=== PATIENT | female | born 1955 | race Caucasian/White ===

== ENCOUNTER 2021-01-20 00:25 | Inpatient (IN) | payer MEDICARE ==
[~2021-01-20] VITALS: Ht 167.6 cm; Wt 98.9 kg
[2021-01-20] VITALS (31 sets, daily range): BP systolic 81–128; BP diastolic 43–84
[2021-01-20] MEDS ORDERED: TYLENOL325 MG PO (00:53)
[2021-01-20] MEDS ORDERED: ADVAIR HFA 115-12 G1 INH (00:53)
[2021-01-20] MEDS ORDERED: TESSALON PERLE100 MG PO (00:54)
[2021-01-20] MEDS ORDERED: ASA81BEC PO (00:54)
[2021-01-20] MEDS ORDERED: FUROSEMIDE 40 M40 MG PO (00:56)
[2021-01-20] MEDS ORDERED: FERROUS FUMARAT89 MG PO (00:56)
[2021-01-20] MEDS ORDERED: VITAMIN D310 MC2 PO (00:56)
[2021-01-20] MEDS ORDERED: GUAIFENESIN DM1 EACH PO (00:58)
[2021-01-20] MEDS ORDERED: IPRAT-ALBUT 0.5-3 ML INH (00:59)
[2021-01-20] MEDS ORDERED: ZOCOR 20 MG TAB20 M1 PO (01:01)
[2021-01-20] MEDS ORDERED: PROMETH-CODEIN 65 ML PO (01:01)
[2021-01-20 01:03] LABS: ABSOLUTE LYMPHOCYTES 0.3 thou/uL (0.8-5.3); ABSOLUTE MONOCYTES 0.5 thou/uL (0.0-1.2); ABSOLUTE NEUTROPHILS 3.5 thou/uL (1.6-8.1); BASOPHILS 0.3 %; EOSINOPHILS 0.9 %; HEMATOCRIT 38.6 % (37.0-47.0); HEMOGLOBIN 11.2 gm/dL (12.0-15.0); LYMPHOCYTES 7.1 %; MCH 28.2 pg (26.0-34.0); MCHC 28.9 g/dL (28.0-37.0); MCV 97.6 fL (80.0-100.0); MONOCYTES 10.6 %; MPV 7.3 fl. (7.2-11.1); NUCLEATED RBCS 1 /100WBC; PLATELET COUNT* 154 thou/uL (150-400); POLYS 81.1 %; RBC 3.96 mil/uL (4.20-5.00); RDW-CV 25.8 % (10.5-14.5); WBC 4.3 thou/uL (4.0-11.0)
[2021-01-20 01:09] LABS: CALCIUM 8.7 mg/dL (8.5-10.1); CREATININE 2.9 mg/dL (0.6-1.3); POTASSIUM 5.2 mmol/L (3.5-5.1)
[2021-01-20 01:13] LABS: ALBUMIN 3.2 g/dL (3.4-5.0); MAGNESIUM 2.8 mg/dL (1.8-2.4); TOTAL BILIRUBIN 0.6 mg/dL (<0.1-1.0)
[2021-01-20 01:47] LABS: BE 5.9 mmol/L (-2 to +3); PO2 109.9 mmHg (75.0-100.0)
[2021-01-20 01:56] LABS: URINE BILIRUBIN NEGATIVE (Negative); URINE BLOOD 3+ (Negative); URINE CLARITY CLEAR; URINE COLOR YELLOW; URINE GLUCOSE-RANDOM NEGATIVE (Negative); URINE KETONES NEGATIVE (Negative); URINE NITRITE-REFLEX NEGATIVE (Negative); URINE PROTEIN 2+ (Negative); URINE SPECIFIC GRAVITY 1.025 (1.005-1.030); URINE UROBILINOGEN 0.2 E.U./dl (0.2-1.0)
[2021-01-20 01:56] LABS: pH 7.225 (7.340-7.450)
[2021-01-20 01:57] LABS: URINE LEUKOCYTES-REFLEX 2+ (Negative)
[2021-01-20 01:57] LABS: PCO2 89.7 mmHg (35.0-45.0)
--- NOTE | 2021-01-20 01:58 | NUR ---
SPOKE TO PATIENTS BROTHER, DAISHA, MEDICAL DPOA. CLARIFIED THAT PATIENT IS A DNR. THEY DO WANT PATIENT TO BE INTUBATED IF IT IS NEEDED PERMISSION GIVEN FOR A CENTRAL LINE WELL WISHES WITNESSED BY ME AND COLIN SHEEHAN
[2021-01-20 02:30] LABS: APTT 27.1 Seconds (25.0-31.3); INR 1.1; PROTIME 11.5 Seconds (9.20-11.50)
[2021-01-20 02:32] LABS: HYALINE CASTS >10 Many /LPF (None Seen); SQUAMOUS 4-10 Moderate /LPF (0-3)
[2021-01-20 02:34] LABS: URINE RBC >20 Many /HPF (0-2)
[2021-01-20 02:35] LABS: CRYSTALS None Seen /LPF (None Seen)
[2021-01-20 04:44] LABS: BE 5.7 mmol/L (-2 to +3)
[2021-01-20 04:47] LABS: pH 7.252 (7.340-7.450)
[2021-01-20 04:48] LABS: PO2 129.4 mmHg (75.0-100.0)
[2021-01-20 05:36] LABS: PLATELET ESTIMATE ADEQUATE
[2021-01-20 05:39] LABS: ANISOCYTOSIS 1+; HYPOCHROMASIA 1+; MACROCYTES 1+; OVALOCYTES Occasional; POIKILOCYTOSIS 1+
--- NOTE | 2021-01-20 06:47 | NUR ---
RECIEVED PT FROM ER AT 0445H, ON BIPAP AT 50%. ORIENTED TO SELF ONLY WITH MENTAL DISORDER. SEEN PT AFIB, CARDIO INFORMED WITH ORDERS CARRIED OUT. PULMO INFORMED PT'S ABG RESULT WITH ORDERS CARRIED OUT. CONTINUE MONITORING AND TOWARDS GOALS. BIPAP AT 35%
[2021-01-20 07:50] LABS: WBC 3.2 thou/uL (4.0-11.0)
[2021-01-20 07:52] LABS: NUCLEATED RBCS 0 /100WBC
[2021-01-20 07:56] LABS: HEMATOCRIT 35.4 % (37.0-47.0); HEMOGLOBIN 10.5 gm/dL (12.0-15.0); MCH 28.8 pg (26.0-34.0); MCHC 29.6 g/dL (28.0-37.0); MCV 97.4 fL (80.0-100.0); MPV 7.3 fl. (7.2-11.1); PLATELET COUNT* 122 thou/uL (150-400); RBC 3.63 mil/uL (4.20-5.00); RDW-CV 25.4 % (10.5-14.5)
[2021-01-20 08:02] LABS: ALBUMIN 2.6 g/dL (3.4-5.0); CALCIUM 8.6 mg/dL (8.5-10.1); CREATININE 2.6 mg/dL (0.6-1.3); POTASSIUM 4.9 mmol/L (3.5-5.1); TOTAL BILIRUBIN 0.5 mg/dL (<0.1-1.0); TOTAL PROTEIN 6.1 g/dL (6.4-8.2)
[2021-01-20 08:10] LABS: BE 4.7 mmol/L (-2 to +3)
[2021-01-20 08:13] LABS: PCO2 70.9 mmHg (35.0-45.0); PO2 58.5 mmHg (75.0-100.0); pH 7.289 (7.340-7.450)
[2021-01-20 08:42] LABS: ABSOLUTE LYMPHOCYTES 0.1 thou/uL (0.8-5.3); ABSOLUTE MONOCYTES 0.3 thou/uL (0.0-1.2); ABSOLUTE NEUTROPHILS 2.8 thou/uL (1.6-8.1); ANISOCYTOSIS 1+; HYPOCHROMASIA 2+; OVALOCYTES 1+; PLATELET ESTIMATE DECREASED; POIKILOCYTOSIS 1+; POLYCHROMASIA Occasional
--- NOTE | 2021-01-20 11:05 | EKG ---
[place] [address] ELECTROCARDIOGRAM REPORT Name: ZOFIA YAO Room: [address] ADM IN M.R.#: [id number] Admission: 01/20/21 Attend Phys: Marshal Noble Discharge: Date of : 57 Date of Service: 01/20/21 003 Report #: [id number] THIS REPORT FOR: //name// [facility] ED Test Date: 2021-01-20 Test Time: 00:31:06 Pat Name: ZOFIA AYO Department: Room: [address] Gender: F Coding Spec: [facility] : 1955 Requested By: Mary Wu Order Number: [id number] Carolyne MD: Adonay Roblero Measurements Intervals [place] Rate: 137 P: MA: QRS: -47 QRSD: 83 T: 101 QT: 307 QTc: 464 Interpretive Statements Atrial fibrillation Left anterior fascicular block Possible lateral infarct, age indeterminate No previous ECG available for comparison Electronically Signed On 01-20-2021 11:04:50 APPLICATION MANAGER by Adonay Roblero [email or web address] <ELECTRONICALLY SIGNED> By: Adonay Roblero MD, FACC 01/20/21 1104 0031 0031 Adonay Roblero MD, FAC /EPI
--- NOTE | 2021-01-20 13:57 | 2DMMODE ---
[place] [address] 2 D/M-MODE ECHOCARDIOGRAM Name: ZOFIA YAO Room: [address] IN .R.#: [id number] Admission: 01/20/21 Attend Phys: Marshal Noble Discharge: Date of : 57 Date of Service: 01/20/21 1357 Report #: [id number] THIS REPORT FOR: cc: Jona Munoz MD, James MD Liston, Michael J. MD [facility] ~ APPROVED REPORT Study performed: 01/20/2021 09:27:47 EXAM: Comprehensive 2D, Doppler, and color-flow Echocardiogram Patient Location: In-Patient Room #: 002 Status: routine BSA: 2.05 HR: 84 bpm BP: 108/67 mmHg Rhythm: Atrial Fibrillation Other Information Study Quality: Good Indications Hypotension Sepsis Dyspnea 2D Dimensions IVSd: 14.73 (7-11mm) LVOT Diam: 20.66 (18-24mm) LVDd: 52.01 mm PWd: 12.83 (7-11mm) Ascending Ao: 36.60 (22-36mm) LVDs: 36.37 (25-40mm) Aortic Root: 34.90 mm Volumes Left Atrial Volume (Systole) LA ESV Index: 86.30 mL/m2 Aortic Valve AoV Peak Antonino.: 2.69 m/s AO Peak Gr.: 28.85 mmHg LVOT Max P.10 mmHg AO Mean Gr.: 17.38 mmHg LVOT Mean P.57 mmHg LVOT Max V: 0.88 m/s AO V2 VTI: 45.26 cm LVOT Mean V: 0.58 m/[place] [address] 2 D/M-MODE ECHOCARDIOGRAM Name: ZOFIA YAO Room: [address] IN ..#: [id number] Admission: 01/20/21 Attend Phys: Marshal Noble Discharge: Date of : 57 Date of Service: 01/20/21 1357 Report #: [id number] SUSAN (VTI): 1.19 cm2 LVOT V1 VTI: 16.06 cm AI [place]: 2.84 m/s2 AI PHT: 490.09 ms Mitral Valve MV Mean Gr.: 8.52 mmHg TDI Lateral E' Antonino.: 0.08 m/s Pulmonary Valve PV Peak Antonino.: 0.87 m/s PV Peak Gr.: 3.01 mmHg Tricuspid Valve RAP Estimate: 15.00 mmHg TR Peak Gr.: 66.26 mmHg RVSP: 81.00 mmHg PA Pressure: 81.00 mmHg Left Ventricle The left ventricle is normal size. There is normal LV segmental wall motion. Moderate concentric left ventricular hypertrophy. Left ventricular systolic function is normal. LVEF is 50-55%. This study is not technically sufficient to allow evaluation of the LV diastolic function due to atrial fibrillation. Right Ventricle Right ventricle is mildly dilated. The right ventricle is moderately hypertrophied. The right ventricular systolic function is normal. Atria Left atrium is severely dilated. Right atrium is moderately dilated. Aortic Valve Moderate to severe aortic valve sclerosis. Moderate aortic regurgitation. Moderate to severe aortic stenosis. Mitral Valve Severe mitral annular calcification. Mild mitral regurgitation. No evidence of mitral valve stenosis. Tricuspid Valve The tricuspid valve is normal in structure. Moderate to severe tricuspid regurgitation. Severe pulmonary hypertension. The RVSP is 90 [place] [address] 2 D/M-MODE ECHOCARDIOGRAM Name: ZOFIA YAO Room: [address] IN [facility].#: [id number] Admission: 01/20/21 Attend Phys: Marshal Noble Discharge: Date of : 57 Date of Service: 01/20/21 1357 Report #: [id number] Pulmonic Valve The pulmonary valve is normal in structure. There is no pulmonic valvular regurgitation. Great Vessels The aortic root is normal in size. IVC is dilated and collapses <50% with inspiration. Pericardium There is no pericardial effusion. <Conclusion> The left ventricle is normal size. Moderate concentric left ventricular hypertrophy. Left ventricular systolic function is normal. LVEF is 50-55%. Right ventricle is mildly dilated. The right ventricle is moderately hypertrophied. The right ventricular systolic function is normal. Left atrium is severely dilated. Right atrium is moderately dilated. Moderate to severe aortic valve sclerosis. Moderate aortic regurgitation. Moderate to severe aortic stenosis. Severe mitral annular calcification. Mild mitral regurgitation. Moderate to severe tricuspid regurgitation. Severe pulmonary hypertension. The RVSP is 90 mmHg. IVC is dilated and collapses <50% with inspiration. <ELECTRONICALLY SIGNED> By: Adonay Roblero MD, FACC 01/20/21 1357 1357 1357 Adonay Roblero MD, FACC /INF
--- NOTE | 2021-01-20 14:08 | NUR ---
ICU rounds: Rapid negative, pcr pending. Alert to self only. Central line to be placed. On bipap. Pt is a LTC resident at [facility] and can return at [place], per Emilee, izabel. CM left for Pt's brother, await call back
--- NOTE | 2021-01-20 15:40 | CON ---
[address] [address] CONSULTATION Name: ZOFIA YAO Room: [address] ADM IN M.R.#: [id number] Admission: 01/20/21 Attend Phys: Awilda Keene Discharge: Date of : 57 Report #: [id number] THIS REPORT FOR: cc: Jona Munoz MD, James MD ~ Carlos Magaña MD DATE OF SERVICE: 01/20/2021 REQUESTING PHYSICIAN: Dr. Noble and Dr. Hernandez INDICATION FOR CONSULTATION: Acute hypoxemic/hypercarbic respiratory failure. HISTORY OF PRESENT ILLNESS: A 65-year-old female, she is a resident of a long-term care facility. The patient is fully awake; however, oriented only to person and therefore is unable to provide a detailed history. I do not have previous records available. The patient does have a previous history of smoking. The patient has in the past been on medications consistent with a diagnosis of COPD. The patient says that she has used oxygen in the past; however, she does not state that she has used CPAP or BiPAP; however, as above the history obtained from the patient is not reliable. There is mention of renal failure on the records, however, the patient is not able to recall history of kidney failure. The patient is now admitted here with acute worsening of shortness of breath. She currently is on a BiPAP. We, however, had a relatively high BiPAP settings of 20/5 and we are still getting low tidal volume, sometimes in the 200s, although, the patient has not been tachypneic. Respiratory rate has been in the high teens. She is in renal failure. Her creatinine is 2.9 last night and 2.6 this morning. I do not have a previous creatinine available for comparison. The patient in fact did have atrial fibrillation as well with heart rates up to 130 overnight. She received 1 dose of ____ just being started on amiodarone infusion. The patient has limited peripheral IV access. She is currently maintaining blood pressure towards the lower end of normal range. Oxygenation has not been an issue. She is on 35% FiO2 and is saturating well. She does not have swelling of lower extremities. The patient is unable to provide a further history or review of systems. PAST MEDICAL HISTORY: COPD, on long-term oxygen, heart failure, hyperlipidemia, there is mention of anticoagulant therapy on her records; however, I do not see an anticoagulant on her reported medication list prior to admission, pulmonary hypertension, according to preliminary report of the echo just performed she has significant aortic stenosis as well as a right heart pressure elevation, intellectual disability, insomnia, hypertension, possible history [place] [address] CONSULTATION Name: ZOFIA YAO Room: [address] IN M.R.#: [id number] Admission: 01/20/21 Attend Phys: Awilda Keene Discharge: Date of : 57 Report #: [id number] SOCIAL HISTORY: The patient says she used to smoke in the past and has now discontinued. No known history of heavy alcohol use or illegal drug use. She is a resident of a long-term care facility. CURRENT MEDICATIONS: List in [facility] reviewed. HOME MEDICATIONS: List in [facility] is reviewed. There is mention of anticoagulant therapy; however, I do not find an anticoagulant on this list. The patient is noted to be on Advair as well as DuoNeb long-term as well as on oxygen. FAMILY HISTORY: No pertinent family history known at this time. ALLERGIES: No known drug allergies. PHYSICAL EXAMINATION: GENERAL: She is fully awake; however, is not able to provide a detailed history. VITAL SIGNS: She earlier was tachycardic with heart rates up to 130. Heart rate right now is 85-90. Blood pressure 116/74. She is not on pressors. We just switched over to a BiPAP of 22/4, which are rather unusual settings with 35-40% FiO2. She is in fact maintaining O2 saturation in the mid 90s. Her respiratory rate is in the high teens. She is fully awake. She is afebrile with a temperature of 36.2. HEENT: Head is normocephalic and atraumatic. Pupils are equal and reactive. There is no throat erythema. She has a narrow airway. Body mass index is 34. NECK: Does not show raised JVP, asymmetry, mass or lymph nodes. CHEST: Symmetrical expansion on inspection and palpation. On auscultation, breath sounds are bilaterally equal, but decreased. I do not hear any added sounds. HEART: Regular. There is a soft systolic murmur. ABDOMEN: Soft and nontender. EXTREMITIES: Lower extremities show no edema, no calf tenderness. SKIN: Dry and intact. NEUROLOGICAL: She does move all extremities bilaterally equally and spontaneously with no focal deficit identified. IMAGING STUDIES: Reviewed her chest x-rays. There is a significant cardiomegaly consistent with chronic heart failure and left ventricular hypertrophy. The patchy bilateral infiltrates, possibly a small lobar infiltrate at the left lung base. I do not see florid pulmonary vascular congestion. She has a prominent aorta. There is a chest x-ray performed at 3:00 a.m., which shows mild increase in pulmonary vascular congestion despite [facility] [address] [place] [address] CONSULTATION Name: ZOFIA YAO Room: [address] ADM IN M.R.#: [id number] Admission: 01/20/21 Attend Phys: Awilda Keene Discharge: Date of : 57 Report #: [id number] the fact that the patient got fluid after this. This in fact looks better on the x-ray performed at 04:25. X-ray performed around midnight in fact does not show pulmonary vascular congestion. LABORATORY DATA: Lab work in [facility] reviewed. She is in renal failure. COVID-19 PCR is pending. MRSA PCR is pending. Screen is negative. Arterial blood gases consistent with acute on chronic hypoxemic and hypercarbic respiratory failure in [facility] reviewed. ASSESSMENT AND PLAN: 1. Degyh-ws-hdfvazn hypoxemic and hypercarbic respiratory failure. She has very significant hypercarbia, pH was also low part of this is secondary to metabolic acidosis and part respiratory the patient in fact looks significantly better, then what would be apparent based on arterial blood gases alone as below considering that the patient has acute renal failure. I would in fact cautiously go ahead and give her IV fluids. In case, her respiratory status worsens as a result would endotracheally intubate her and support her with the ventilator. The patient does need a central line and I understand that this is already planned. I did adjust the BiPAP settings. It is rather unusual to require this much I:E ratio to get this tidal volume. The etiology of this is not fully clear at this time. We will do an ABG again at 3:00 p.m. and see where we stand. Meanwhile, she remains on BiPAP. 2. Acute exacerbation of chronic obstructive pulmonary disease, Solu-Medrol as well as nebulized bronchodilators. Considering significant AFib, I ordered Xopenex. She is also on Brovana and Atrovent is added. 3. Pulmonary infiltrates. COVID-19 PCR is pending. Overall, my suspicion is not high. She does have a left lower lobe infiltrate as well. She is on Zosyn and doxycycline at this time, we will follow response. 4. Acute renal failure and congestive heart failure. I do not have the patient's previous creatinine available. Renal ultrasound is pending. Considering significant renal failure, I would cautiously go ahead and give her some IV fluids and I reviewed this with Dr. Hernandez as well. It will be possible that this leads to worsening in her respiratory status. If the same, does occur, then I would go ahead and endotracheally intubate her and support her with the ventilator, but allowing adequate renal perfusion at this time also appears to be appropriate. Meanwhile, we are requesting records and we will see what her baseline creatinine is. She has significant cardiomegaly on the chest x-ray. Pulmonary vascular congestion on the last chest x-ray is minimal. Most of the heart failure in fact appears to be chronic and not acute at first glance. 5. Atrial fibrillation with rapid ventricular response with an elevated right heart pressure. We will await final echo report. I would do stat venous Dopplers. D-dimer is also elevated. She is planned for a central line placement. Potentially could be started on IV heparin after the line is placed. [address] [place] [address] CONSULTATION Name: ZOFIA YAO Room: M.002-P ADM IN M.R.#: [id number] Admission: 01/20/21 Attend Phys: Awilda Keene Discharge: Date of : 57 Report #: [id number] A perfusion scan is likely to not give us a definite answer and there will be risk in transport, therefore would hold off on a perfusion scan. She has obvious contraindications to performing a CTA chest. 6. Deep vein thrombosis prophylaxis, currently on subcutaneous heparin. 7. Hyperglycemia. We will order an insulin sliding scale. 8. Gastrointestinal prophylaxis. We will give a Protonix IV to let it is certain that she can take p.o. The patient is critically ill at this time. Total time spent providing critical care to this patient today exceeds 45 minutes. <ELECTRONICALLY SIGNED> By: Carlos Magaña MD 01/20/21 1540 [id number] Magaña MD /nt
[2021-01-20 15:47] LABS: BE 4.2 mmol/L (-2 to +3); PO2 69.2 mmHg (75.0-100.0)
[2021-01-20 15:52] LABS: pH 7.291 (7.340-7.450)
[2021-01-20 15:53] LABS: PCO2 69.1 mmHg (35.0-45.0)
--- NOTE | 2021-01-20 15:56 | NUR ---
WOUND NURSE: RECEIVED REFERRAL TO ASSESS RIGHT GLUTEAL SKIN LESION. NO OPEN WOUND, PINK SCAR TISSUE NOTED ALONG WHAT MAY HAVE BEEN A PREVIOUS EROSION. RECOMMEND USE OF PHYTOPLEX AF TOPICAL MOISTURE BARRIER Q SHIFT AFTER EACH PERINEAL CARE. THIS WAS DISCUSSED WITH NURSEFREDDY.
[2021-01-20 16:06] LABS: ABSOLUTE LYMPHOCYTES 0.1 thou/uL (0.8-5.3); ABSOLUTE NEUTROPHILS 3.1 thou/uL (1.6-8.1); BASOPHILS 0.3 %; HEMATOCRIT 36.5 % (37.0-47.0); HEMOGLOBIN 10.6 gm/dL (12.0-15.0); LYMPHOCYTES 3.4 %; MCH 28.4 pg (26.0-34.0); MCHC 28.9 g/dL (28.0-37.0); MCV 98.3 fL (80.0-100.0); MONOCYTES 1.2 %; MPV 7.6 fl. (7.2-11.1); NUCLEATED RBCS 1 /100WBC; PLATELET COUNT* 117 thou/uL (150-400); POLYS 95.1 %; RBC 3.71 mil/uL (4.20-5.00); RDW-CV 25.3 % (10.5-14.5); WBC 3.2 thou/uL (4.0-11.0)
[2021-01-20 16:15] LABS: ALBUMIN 2.8 g/dL (3.4-5.0); CALCIUM 8.2 mg/dL (8.5-10.1); CREATININE 2.7 mg/dL (0.6-1.3); MAGNESIUM 2.6 mg/dL (1.8-2.4); POTASSIUM 4.7 mmol/L (3.5-5.1); TOTAL BILIRUBIN 0.8 mg/dL (<0.1-1.0); TOTAL PROTEIN 6.4 g/dL (6.4-8.2)
--- NOTE | 2021-01-20 18:23 | NUR ---
THIS PICK PULLING MACHINE TENDER ASSUMED CARE OF PT AT 0700. ASSESSMENT CHARTED. PT REMAINS ON BIPAP TOLERATING WELL ABG HASN'T IMPROVED BY MUCH PER DR APPIAH INCREASE FLUIDS TO 80 AND LEAVE ON BIPAP. PT IS ON AMIO GTT PER CARDIO FOR AFIB. ECHO COMPLETE TODAY RENAL US AND VENOUS DOPPLER PENDING PER DR APPIAH WANTS COMPLETE TODAY THIS PICK PULLING MACHINE TENDER SPOKE WITH AISLINN IN US SHE STATED BOTH US WOULD BE COMPLETED TODAY STILL WAITING AT THIS POINT. CENTRAL LINE PLACED BY DR GEETHA URBINA CONFIRMED PLACEMENT CONSENT IN CHART. NUC MED SCAN ORDERED FOR LUNGS PER DR APPIAH PT ISN'T STABLE ENOUGH AT THIS TIME AND WILL TRY TO HAVE IT DONE TOMORROW. BROTHER DAISHA UPDATED THROUGH OUT SHIFT
[2021-01-21] VITALS (22 sets, daily range): BP systolic 112–142; BP diastolic 65–89
[2021-01-21 04:34] LABS: ABSOLUTE LYMPHOCYTES 0.1 thou/uL (0.8-5.3); ABSOLUTE MONOCYTES 0.1 thou/uL (0.0-1.2); BASOPHILS 0.2 %; EOSINOPHILS 0.3 %; HEMATOCRIT 32.6 % (37.0-47.0); HEMOGLOBIN 9.7 gm/dL (12.0-15.0); LYMPHOCYTES 6.4 %; MCH 28.6 pg (26.0-34.0); MCHC 29.8 g/dL (28.0-37.0); MCV 95.9 fL (80.0-100.0); MONOCYTES 2.9 %; MPV 7.2 fl. (7.2-11.1); NUCLEATED RBCS 1 /100WBC; PLATELET COUNT* 121 thou/uL (150-400); POLYS 90.2 %
[2021-01-21 04:41] LABS: ABSOLUTE NEUTROPHILS 1.6 thou/uL (1.6-8.1)
[2021-01-21 04:43] LABS: WBC 1.8 thou/uL (4.0-11.0)
[2021-01-21 05:00] LABS: ALBUMIN 2.7 g/dL (3.4-5.0); CALCIUM 8.3 mg/dL (8.5-10.1); CREATININE 2.5 mg/dL (0.6-1.3); MAGNESIUM 2.6 mg/dL (1.8-2.4); PHOSPHORUS* 4.2 mg/dL (2.5-4.9); POTASSIUM 4.5 mmol/L (3.5-5.1)
[2021-01-21 05:01] LABS: ALBUMIN 2.7 g/dL (3.4-5.0); CALCIUM 8.3 mg/dL (8.5-10.1); CREATININE 2.6 mg/dL (0.6-1.3); MAGNESIUM 2.6 mg/dL (1.8-2.4); POTASSIUM 4.5 mmol/L (3.5-5.1); TOTAL BILIRUBIN 0.7 mg/dL (<0.1-1.0); TOTAL PROTEIN 6.1 g/dL (6.4-8.2)
[2021-01-21 08:45] LABS: BE 6.1 mmol/L (-2 to +3); PO2 72.9 mmHg (75.0-100.0); pH 7.393 (7.340-7.450)
[2021-01-21 08:47] LABS: PCO2 54.1 mmHg (35.0-45.0)
--- NOTE | 2021-01-21 14:04 | NUR ---
ICU rounds: PCR negative. Bipap at NOC. On ivabx
[2021-01-21 17:42] LABS: CALCIUM 8.8 mg/dL (8.5-10.1); CREATININE 2.6 mg/dL (0.6-1.3); MAGNESIUM 2.7 mg/dL (1.8-2.4); POTASSIUM 4.1 mmol/L (3.5-5.1)
--- NOTE | 2021-01-21 19:23 | NUR ---
PT OUT OF BED IN A RECLINER WITH MAX SUPP x2. TOLERATED NC 3L/MIN WHOLE SHIFT. VSS. TOLERATING DIET. SMALL SMEAR OF BM THIS AM. AMIODARONE CONTD AT 0.5 MG/MIN. Q2 TURNS PROVIDED.
[2021-01-22] VITALS (18 sets, daily range): BP systolic 117–154; BP diastolic 78–96
[2021-01-22 03:55] LABS: ABSOLUTE LYMPHOCYTES 0.1 thou/uL (0.8-5.3); ABSOLUTE MONOCYTES 0.1 thou/uL (0.0-1.2); ABSOLUTE NEUTROPHILS 2.1 thou/uL (1.6-8.1); BASOPHILS 0.2 %; HEMATOCRIT 32.6 % (37.0-47.0); HEMOGLOBIN 9.6 gm/dL (12.0-15.0); LYMPHOCYTES 5.5 %; MCH 28.7 pg (26.0-34.0); MCHC 29.5 g/dL (28.0-37.0); MCV 97.2 fL (80.0-100.0); MONOCYTES 5.1 %; MPV 6.9 fl. (7.2-11.1); NUCLEATED RBCS 1 /100WBC; PLATELET COUNT* 109 thou/uL (150-400); POLYS 89.2 %; RBC 3.35 mil/uL (4.20-5.00); RDW-CV 24.8 % (10.5-14.5); WBC 2.4 thou/uL (4.0-11.0)
[2021-01-22 04:18] LABS: ALBUMIN 2.8 g/dL (3.4-5.0); CALCIUM 8.7 mg/dL (8.5-10.1); CREATININE 2.4 mg/dL (0.6-1.3); MAGNESIUM 2.7 mg/dL (1.8-2.4); POTASSIUM 3.8 mmol/L (3.5-5.1); TOTAL BILIRUBIN 0.6 mg/dL (<0.1-1.0); TOTAL PROTEIN 6.2 g/dL (6.4-8.2); TROPONIN-I LEVEL 0.17 ng/mL (<0.06)
[2021-01-22 06:23] LABS: PLATELET ESTIMATE DECREASED
[2021-01-22 06:24] LABS: ANISOCYTOSIS 1+; POIKILOCYTOSIS 1+
--- NOTE | 2021-01-22 06:53 | NUR ---
ASSESSMENTS CHARTED. PATIENT ON BIPAP FOR THE MAJORITY OF THE SHIFT. TOLERATED TURNS WELL. NO ACUTE EVENTS OVERNIGHT
[2021-01-22 08:06] LABS: BE 5.4 mmol/L (-2 to +3); PO2 67.7 mmHg (75.0-100.0); pH 7.396 (7.340-7.450)
[2021-01-22 08:15] LABS: PCO2 52.1 mmHg (35.0-45.0)
--- NOTE | 2021-01-22 15:54 | NUR ---
PT.HAS BEEN IN CHAIR TODAY. IS TO MOVE TO TELEMETRY FLOOR. AMIODARONE GTT OFF. NURSING SAID PTS SISTER SAID PT.WEARS CPAP AT HURSING HOME AND IT DOESN'T SEEM TO HELP HER MUCH. HERE SHE IS ON BIPAP AT NIGHT AND SEEMS TO HELP HER SOME. WAS WONDERING IF SHE COULD HAVE A BIPAP AT [facility]. CM WILL LOOK INTO CLOSER TO DISCHARGE.
--- NOTE | 2021-01-22 17:11 | NUR ---
Patient transferred to floor this afternoon with max support assist; has been in chair a lot of day; off amiodarone this morning, and is currently on metoprolol and vitals are staying stable.
--- NOTE | 2021-01-22 19:48 | NUR ---
RECEIVED REPORT FROM LUIGI. PT TRANSERRED FROM ICU. PT ORIENTED TO NEW ROOM. IV INTACT. HEART MONITOR ATTACHED AT AFIB. CONTROLLED. MEDS GIVEN PER JAN. HOURLY ROUNDING PERFORMED. CALL LIGHT WITHIN REACH. REPORT GIVEN TO TEMPLATE CLERK.
[2021-01-23] VITALS (7 sets, daily range): BP systolic 126–152; BP diastolic 74–109
[2021-01-23 04:34] LABS: ABSOLUTE LYMPHOCYTES 0.1 thou/uL (0.8-5.3); BASOPHILS 0.1 %; MPV 7.4 fl. (7.2-11.1); NUCLEATED RBCS 1 /100WBC
[2021-01-23 04:53] LABS: ALBUMIN 3.1 g/dL (3.4-5.0); CALCIUM 8.8 mg/dL (8.5-10.1); CREATININE 2.3 mg/dL (0.6-1.3); MAGNESIUM 2.6 mg/dL (1.8-2.4); POTASSIUM 4.3 mmol/L (3.5-5.1); TOTAL BILIRUBIN 0.6 mg/dL (<0.1-1.0); TOTAL PROTEIN 6.7 g/dL (6.4-8.2)
--- NOTE | 2021-01-23 05:05 | NUR ---
PT SLEPT MOST OF SHIFT. ASSESSMENT DOCUMENTED. MEDS GIVEN PER E-MAR. IV PATENT. NO REPORTS OF PAIN. PT HAD PERIODS OF CONFUSION THIS SHIFT. FALL PRECAUTIONS IN PLACE. PT REPOSITIONED Q2H. BIPAP WORN MOST OF SHIFT.
[2021-01-23 05:06] LABS: ABSOLUTE MONOCYTES 0.2 thou/uL (0.0-1.2); ABSOLUTE NEUTROPHILS 3.1 thou/uL (1.6-8.1); HEMATOCRIT 34.6 % (37.0-47.0); HEMOGLOBIN 10.2 gm/dL (12.0-15.0); LYMPHOCYTES 2.6 %; MCH 28.8 pg (26.0-34.0); MCHC 29.5 g/dL (28.0-37.0); MCV 97.8 fL (80.0-100.0); PLATELET COUNT* 97 thou/uL (150-400); POLYS 92.3 %; RBC 3.53 mil/uL (4.20-5.00); RDW-CV 25.6 % (10.5-14.5); WBC 3.4 thou/uL (4.0-11.0)
[2021-01-23 06:03] LABS: BE 5.4 mmol/L (-2 to +3); pH 7.369 (7.340-7.450)
[2021-01-23 06:09] LABS: PCO2 56.8 mmHg (35.0-45.0); PO2 58.6 mmHg (75.0-100.0)
--- NOTE | 2021-01-23 13:40 | NUR ---
No weekend dc planned. Plan back to [facility] LTC. Per pulm, Pt will need a bipap at dc. CM faxed updated clinicals and informed admissions at LTC of bipap need. Continue to wean o2 needs.
[2021-01-23 15:44] LABS: CALCIUM 9.1 mg/dL (8.5-10.1); CREATININE 2.4 mg/dL (0.6-1.3); MAGNESIUM 2.6 mg/dL (1.8-2.4); POTASSIUM 4.8 mmol/L (3.5-5.1)
[2021-01-24 04:00] VITALS: BP 140/99
--- NOTE | 2021-01-24 05:18 | NUR ---
PT SLEPT ON AND OFF THIS SHIFT. ASSESSMENT DOCUMENTED. MEDS GIVEN PER E-JAN. PT PULLED OUT IV, NEW ONE STARTED. PT ON 3L NC THIS SHIFT. PT HAD BM THIS SHIFT. REPOSITIONED THROUGH SHIFT. FALL PRECAUTIONS IN PLACE.
[2021-01-24 06:40] LABS: ALBUMIN 3.1 g/dL (3.4-5.0); CALCIUM 8.7 mg/dL (8.5-10.1); CREATININE 2.3 mg/dL (0.6-1.3); MAGNESIUM 2.5 mg/dL (1.8-2.4); POTASSIUM 4.7 mmol/L (3.5-5.1); TOTAL BILIRUBIN 0.7 mg/dL (<0.1-1.0); TOTAL PROTEIN 6.5 g/dL (6.4-8.2)
[2021-01-24 06:42] LABS: HEMATOCRIT 34.1 % (37.0-47.0); HEMOGLOBIN 9.9 gm/dL (12.0-15.0); MCH 28.4 pg (26.0-34.0); MCV 97.7 fL (80.0-100.0); MPV 7.4 fl. (7.2-11.1); NUCLEATED RBCS 1 /100WBC; PLATELET COUNT* 91 thou/uL (150-400); RBC 3.49 mil/uL (4.20-5.00); RDW-CV 25.3 % (10.5-14.5); WBC 2.3 thou/uL (4.0-11.0)
[2021-01-24 07:30] LABS: ABSOLUTE MONOCYTES 0.1 thou/uL (0.0-1.2); ABSOLUTE NEUTROPHILS 2.2 thou/uL (1.6-8.1); ANISOCYTOSIS 3+; PLATELET ESTIMATE DECREASED
[2021-01-24 07:31] LABS: OVALOCYTES 1+; SCHISTOCYTES Occasional
[2021-01-24 07:32] LABS: CLUMPED PLTS RARE; TEARDROPS 1+
--- NOTE | 2021-01-24 08:00 | NUR ---
ASSUMED CARE PATIENT, DEFER TO COMPUTER CHARTING. MOCK UP MAKER TRACKING AFIB. 02 ON 3L PER NC. DENIES PAIN, DIZZINESS NAUSEA OR ANY DISCOMFORT AT THIS TIME. HOB ELEVATED, CALL LIGHT WITHIN REACH. WILL MONITOR.
[2021-01-24 12:14] VITALS: BP 147/92
--- NOTE | 2021-01-24 14:22 | NUR ---
PATIENT MAX ASSIST X 2 TO 3 TO CHAIR, STAYING UP IN CHAIR FOR APPOX 1 1/2 HR. LIFT USED TO PUT PATIENT SAFETY BACK IN BED. NOTED PATIENT HAVING DIFFICULTY WITH RIGHT LEG WEAKNESS MORE THEN LEFT - ARM STRENGHT EQUAL. GIVEN COMPLETE BATH BY BOX ICER PRIOR RETURING TO BED. CALL PLACED TO RESPIRATORY TO PLACE ON BIPAP WHILE TAKING NAP.
[2021-01-24 16:00] VITALS: BP 147/88
--- NOTE | 2021-01-24 18:25 | NUR ---
CORE STICKER TRACKING WITH NO CHANGE IN RHYTHM. UP TO CHAIR TODAY FOR SHORT TIME DURING LUNCH. MAX ASSIST X 2 TO CHAIR AND HAD TO USE LIFT TO GET BACK IN BED. PATIENT PLACED ON BIPAP THIS AFTERNOON FOR NAP - EDUCATED ON IMPORTANCE OF USING BIPAP WHEN SLEEPING - WILL NEED REINFORCEMENT TEACHING. HOB ELEVATED, 02 ON 3L PER NC. TOLERATING DIET, BUT NOTED IS COUGHING AT TIMES WITH MEAL, ENCOURAGED TO TAKE TIME SM BITES EATING. HOB ELEVATED, CALL LIGHT WITHIN REACH.
[2021-01-24 19:30] VITALS: BP 113/82
[2021-01-24 23:31] VITALS: BP 145/76
[2021-01-25 04:00] VITALS: BP 143/98
[2021-01-25 05:04] LABS: WBC 3.2 thou/uL (4.0-11.0)
[2021-01-25 05:08] LABS: HEMATOCRIT 34.2 % (37.0-47.0); HEMOGLOBIN 9.9 gm/dL (12.0-15.0); MCH 28.7 pg (26.0-34.0); MCV 98.9 fL (80.0-100.0); MPV 7.8 fl. (7.2-11.1); RBC 3.46 mil/uL (4.20-5.00); RDW-CV 24.9 % (10.5-14.5)
[2021-01-25 05:13] LABS: CALCIUM 8.5 mg/dL (8.5-10.1); CREATININE 2.4 mg/dL (0.6-1.3); MAGNESIUM 2.4 mg/dL (1.8-2.4); POTASSIUM 4.5 mmol/L (3.5-5.1); TOTAL BILIRUBIN 0.6 mg/dL (<0.1-1.0); TOTAL PROTEIN 6.7 g/dL (6.4-8.2)
--- NOTE | 2021-01-25 07:47 | NUR ---
Care assumed at 2300 from [facility]. Pt aox2 at baseline due to developmental delay, running a-flutter throughout shift, respirations are even and unlabored on BIPAP w/ FIO2 of 35%. Dr Chapin was paged at 0100 for medication for anxiety due to BIPAP. Onetime dose of ativan 0.5 mg IVP was ordered and administered. Pt rested comfortable from that point on. Pt is medically stable at this time.
[2021-01-25 07:50] VITALS: BP 136/94
[2021-01-25 12:00] VITALS: BP 127/89
[2021-01-25 16:00] VITALS: BP 111/71
[2021-01-25 19:30] VITALS: BP 137/98
--- NOTE | 2021-01-25 20:07 | NUR ---
VSS. Remains in Afib per monitor, controlled rate. Up to standing position X3 with PT & RN assist using walker and gait belt. Will continue to monitor.
[2021-01-26 00:19] VITALS: BP 141/91
[2021-01-26 04:33] LABS: ABSOLUTE LYMPHOCYTES 0.2 thou/uL (0.8-5.3); ABSOLUTE MONOCYTES 0.1 thou/uL (0.0-1.2); ABSOLUTE NEUTROPHILS 3.3 thou/uL (1.6-8.1); BASOPHILS 0.3 %; HEMATOCRIT 35.2 % (37.0-47.0); HEMOGLOBIN 10.1 gm/dL (12.0-15.0); LYMPHOCYTES 4.2 %; MCH 28.1 pg (26.0-34.0); MCHC 28.7 g/dL (28.0-37.0); MONOCYTES 3.4 %; MPV 7.9 fl. (7.2-11.1); NUCLEATED RBCS 3 /100WBC; PLATELET COUNT* 114 thou/uL (150-400); POLYS 92.1 %; RBC 3.59 mil/uL (4.20-5.00); RDW-CV 24.6 % (10.5-14.5); WBC 3.6 thou/uL (4.0-11.0)
[2021-01-26 04:37] LABS: ALBUMIN 3.1 g/dL (3.4-5.0); CALCIUM 8.8 mg/dL (8.5-10.1); CREATININE 2.4 mg/dL (0.6-1.3); MAGNESIUM 2.4 mg/dL (1.8-2.4); POTASSIUM 4.7 mmol/L (3.5-5.1); TOTAL BILIRUBIN 0.6 mg/dL (<0.1-1.0); TOTAL PROTEIN 6.4 g/dL (6.4-8.2)
[2021-01-26 04:41] VITALS: BP 130/89
--- NOTE | 2021-01-26 04:53 | NUR ---
PT SLEPT MOST OF SHIFT. ASSESSMENT DOCUMENTED. MEDS GIVEN PER E-MAR. IV PATENT. NO REPORTS OF PAIN. PT WORE BIPAP MOST OF SHIFT. FALL PRECAUTIONS IN PLACE. PT REPOSITIONED THROUGH SHIFT. PT ALSO HAD A LARGE BM THIS SHIFT. WILL CONTINUE WITH PLAN OF CARE.
[2021-01-26 08:00] VITALS: BP 144/81
[2021-01-26 12:18] VITALS: BP 137/92
--- NOTE | 2021-01-26 14:39 | NUR ---
Continue bipap at night, wean o2. Anticipate dc in a few days. Updated Emilee at [facility].
[2021-01-26 16:00] VITALS: BP 147/76
--- NOTE | 2021-01-26 18:04 | NUR ---
RECEIVED REPORT AROUND 714. ASSUMED CARE. VS AND ASSESSMENT CHARTED. Q2 TURNS. IV INTACT RIGHT WRIST. HEART MONITOR ATTACHED AT AFIB/AFLUTTER. CONTROLLED. PT LYING IN BED. MEDS GIVEN PER JAN. HOURLY ROUNDING PERFORMED. NO PAIN REPORTED. METZGER INTACT. 3L NC. BIPAP AT NIGHT. CALL LIGHT WITHIN REACH. WILL CONTINUE TO MONITOR.
[2021-01-26 21:00] VITALS: BP 157/97
[2021-01-27 00:16] VITALS: BP 153/99
[2021-01-27 04:02] VITALS: BP 141/98
--- NOTE | 2021-01-27 05:27 | NUR ---
No acute event this shift. Pt no complains of pain. Pt on BIPAP overnight. Pt VS stable. Assessment as charted, meds per mar. Call light within reach, safety precaution in placed.
[2021-01-27 05:34] LABS: HEMATOCRIT 34.2 % (37.0-47.0); MCH 28.4 pg (26.0-34.0); MCHC 29.3 g/dL (28.0-37.0); MCV 96.8 fL (80.0-100.0); MPV 7.2 fl. (7.2-11.1); NUCLEATED RBCS 4 /100WBC; PLATELET COUNT* 138 thou/uL (150-400); RBC 3.53 mil/uL (4.20-5.00); RDW-CV 24.9 % (10.5-14.5); WBC 2.8 thou/uL (4.0-11.0)
[2021-01-27 05:49] LABS: CALCIUM 8.9 mg/dL (8.5-10.1); CREATININE 2.3 mg/dL (0.6-1.3); MAGNESIUM 2.4 mg/dL (1.8-2.4); POTASSIUM 4.7 mmol/L (3.5-5.1); TOTAL BILIRUBIN 0.6 mg/dL (<0.1-1.0); TOTAL PROTEIN 6.3 g/dL (6.4-8.2)
[2021-01-27 06:17] LABS: ABSOLUTE LYMPHOCYTES 0.1 thou/uL (0.8-5.3); ABSOLUTE MONOCYTES 0.2 thou/uL (0.0-1.2); ABSOLUTE NEUTROPHILS 2.5 thou/uL (1.6-8.1); OVALOCYTES 2+; PLATELET ESTIMATE DECREASED
[2021-01-27 06:18] LABS: ANISOCYTOSIS 1+; HYPOCHROMASIA 1+; POIKILOCYTOSIS 1+; SCHISTOCYTES Occasional
[2021-01-27 08:00] VITALS: BP 144/98
[2021-01-27 11:10] VITALS: BP 135/75
[2021-01-27 12:07] LABS: HEMOGLOBIN 10.6 g/dL (11.1-15.9)
--- NOTE | 2021-01-27 15:17 | NUR ---
Continue bipap at [facility], work to wean o2. CM faxed updated clinicals to [facility]
[2021-01-27 16:13] VITALS: BP 142/95
--- NOTE | 2021-01-27 18:29 | NUR ---
RECEIVED REPORT AROUND 0715. ASSUMED CARE. VS AND ASSESSMENT CHARTED. IV INTACT RIGHT FOREARM. HEART MONITOR ATTACHED AT AFIB. CONTROLLED. MEDS GIVEN PER JAN. HOURLY ROUNDING PERFORMED. NO PAIN REPORTED THIS SHIFT. PT UP IN CHAIR CURRENTLY. NOTED SOME SWALLOWING DIFFICULTY THIS SHIFT. NO ASPIRATION. REMINDED PT TO SWALLOW. YASSINE TAKEN OUT THIS SHIFT. CALL LIGHT WITHIN REACH. WILL CONTINUE TO MONITOR.
[2021-01-28 02:35] VITALS: BP 152/99
[2021-01-28 04:55] LABS: ABSOLUTE LYMPHOCYTES 0.3 thou/uL (0.8-5.3); ABSOLUTE MONOCYTES 0.6 thou/uL (0.0-1.2); BASOPHILS 0.2 %; EOSINOPHILS 0.1 %; HEMATOCRIT 36.1 % (37.0-47.0); HEMOGLOBIN 10.6 gm/dL (12.0-15.0); LYMPHOCYTES 8.6 %; MCH 28.6 pg (26.0-34.0); MCHC 29.4 g/dL (28.0-37.0); MCV 97.1 fL (80.0-100.0); MONOCYTES 15.8 %; MPV 7.6 fl. (7.2-11.1); NUCLEATED RBCS 2 /100WBC; PLATELET COUNT* 155 thou/uL (150-400); POLYS 75.3 %; RBC 3.72 mil/uL (4.20-5.00); RDW-CV 24.5 % (10.5-14.5)
[2021-01-28 05:31] LABS: CREATININE 2.2 mg/dL (0.6-1.3); POTASSIUM 4.5 mmol/L (3.5-5.1)
[2021-01-28 06:00] VITALS: BP 135/90
--- NOTE | 2021-01-28 07:20 | NUR ---
PATIENT HAS SLEPT WELL THROUGHOUT THE NIGHT. VSS ON 3L 02 VIA NASAL CANNULA. MEDICATIONS GIVEN ORDERED AND CHARTED. PATIENT TO THE BED WITH FLAKITO LIFT AND MAX ASSIST. PATIENT INCONTINENT OF BLADDER AND AFBIO CARE PERFORMED. DRESSING TO BUTTOCK IS INTACT. IV IN RIGHT FOREARM-SL. FALL PRECAUTIONS IN PLACE AND HOURLY ROUNDS MADE. WILL CONTINUE WITH PLAN OF CARE AND NURSING TO MONITOR.
[2021-01-28 07:30] LABS: ANISOCYTOSIS 1+
[2021-01-28 07:31] LABS: LARGE PLATELETS OCCASIONAL; MACROCYTES 1+; PLATELET ESTIMATE ADEQUATE
[2021-01-28 07:32] LABS: OVALOCYTES Occasional
[2021-01-28 07:35] LABS: TEARDROPS Occasional
[2021-01-28 08:00] VITALS: BP 122/89
[2021-01-28 10:21] VITALS: BP 122/89
[2021-01-28] MEDS ORDERED: TOPROL XL50 MG PO (10:28)
[2021-01-28] MEDS ORDERED: ELIQUIS5 MG PO (10:28)
[2021-01-28] MEDS ORDERED: PREDNISONE 10 M10 MG PO (10:28)
[2021-01-28] MEDS ORDERED: PROTONIX40 M2 PO (10:28)
--- NOTE | 2021-01-28 10:42 | NUR ---
Pt discharging back to [facility] today, facility to package pick up at 1pm. Faxed dc orders and bipap settings, LTC to order bipap. CM updated Pt's family of dc plans. Chart copied. Nurse report number is [phone], CM to fax covid results once available.
--- NOTE | 2021-01-28 13:18 | CON ---
[address] [address] CONSULTATION Name: ZOFIA YAO Room: [address] ADM IN M.R.#: [id number] Admission: 01/20/21 Attend Phys: Awilda Keene Discharge: Date of : 57 Report #: [id number] THIS REPORT FOR: cc: Jona Munoz MD, James MD ~ Evan Tapia MD DATE OF SERVICE: 01/20/2021 NEPHROLOGY CONSULTATION CONSULTING PHYSICIAN: Marshal Noble DO REASON FOR CONSULTATION: Acute kidney injury. HISTORY OF PRESENT ILLNESS: A 65-year-old female admitted with respiratory failure and I was asked to see her because of an elevated creatinine of 2.9 on admission. Baseline creatinine unknown. She has no outpatient kidney doctor. She has pulmonary congestion and diastolic heart failure, acute on chronic on admission. She was on oral Lasix at home. There is also a concern for possible pneumonia. She has been started on antibiotics. COVID-19 testing is pending. She is also being treated for COPD exacerbation. Cardiology and Pulmonology are currently seeing the patient. She appears to be comfortable on BiPAP. She was also being treated for AFib with RVR. REVIEW OF SYSTEMS: Constitutional, psych, heme, eyes, ENT, respiratory, cardiac, GI, and endocrine all negative except as documented above. PAST MEDICAL HISTORY: Diastolic heart failure, hypertension, aortic stenosis. FAMILY HISTORY: Not pertinent in this 65-year-old female. SOCIAL HISTORY: She has a brother who is involved in her care. She has no known tobacco or alcohol history. CURRENT MEDICATIONS: Reviewed. PHYSICAL EXAMINATION: VITAL SIGNS: Blood pressure is 125/84, pulse 81, respirations 16, temperature 36.2. GENERAL: No acute distress. EYES: Open. EARS: Externally normal. NECK: Supple. CARDIOVASCULAR: [place] [address] CONSULTATION Name: ZOFIA YAO Room: [address]#: [id number] Admission: 01/20/21 Attend Phys: Awilda Keene Discharge: Date of : 57 Report #: [id number] LUNGS: No accessory muscle use. ABDOMEN: Soft. MUSCULOSKELETAL: Nontender. PSYCHIATRIC: Awake, alert. LABORATORY DATA: White cell count 3.2, hemoglobin 10.5, platelets 122. Sodium 143, potassium 4.9, chloride 105, bicarbonate 34, BUN 81, creatinine 2.6, glucose 109, calcium 8.6. ABG 7.29, pCO2 of 71 and bicarbonate 33. ASSESSMENT: 1. Acute kidney injury with admission creatinine of 2.9 with pulmonary edema, concern for possible pneumonia, diastolic heart failure while on oral Lasix. Also, AFib with rapid ventricular response. Baseline creatinine unknown. 2. Respiratory acidosis. 3. Chronic obstructive pulmonary disease with exacerbation. 4. Hypertension. 5. Severe aortic stenosis. 6. Diastolic heart failure. 7. Atrial fibrillation with rapid ventricular response. 8. Urinary tract infection. 9. Hypoalbuminemia with an albumin of 2.6. PLAN: 1. She has some pulmonary congestion along with aortic stenosis. Diuresis may be challenging. She appears to be stable at present time. We will defer diuretics to Cardiology/Pulmonology. 2. Creatinine has slightly improved down to 2.6, COVID-19 test pending. 3. Check renal ultrasound. 4. We will follow closely along with you. Thank you for requesting my opinion in the care and management of this patient. <ELECTRONICALLY SIGNED> By: Evan Tapia MD 01/28/21 1318 1345 1944Abeau Tapia MD /nt
--- NOTE | 2021-01-28 13:38 | NUR ---
RECEIVED REPORT AROUND 0715. ASSUMED CARE. VS AND ASSESSMENT CHARTED. IV INTACT RIGHT FOREARM. HEART MONITOR ATTACHED AT AFIB. CONTROLLED. PT LYING IN BED. Q2 TURNS. PT WASHED UP THIS SHIFT. DISCHARGE ORDERS RECEIVED. WOUND PICTURE TAKEN IN CHART. IV TAKEN OUT. HEART MONITOR OFF. REPORT GIVEN TO FREDDY AT [facility]. DISCHARGE PACKET GIVEN TO TRANSPORTER. PT LEFT UNIT VIA WHEELCHAIR WITH TRANSPORTER AND ALL BELONGINGS AT 1338.
== END 2021-01-28 13:39 | DRG 177 ==
LOC: M.ERS 00:25 → M.ICU 02:23 → M.2W 02:23 → M.TBA-ER 02:23 → M.ICU 03:33 → M.2W 01-22 17:02
PROVIDERS: Internal Medicine; Internal Medicine Critical Care Medicine; Internal Medicine Hematology & Oncology; Internal Medicine Nephrology; Personal Emergency Response Attendant; ADMIT Internal Medicine; ATTEND Internal Medicine
PROC: 02HV33Z Insertion of Infusion Device into Superior Vena Cava, Percutaneous Approach (ICD-10-PCS; principal; 2021-01-20)
PROC: 5A09357 Assistance with Respiratory Ventilation, Less than 24 Consecutive Hours, Continuous Positive Airway Pressure (ICD-10-PCS; principal; 2021-01-20)
PROC: 5A09357 Assistance with Respiratory Ventilation, Less than 24 Consecutive Hours, Continuous Positive Airway Pressure (ICD-10-PCS; 2021-01-21)
PROC: 5A09357 Assistance with Respiratory Ventilation, Less than 24 Consecutive Hours, Continuous Positive Airway Pressure (ICD-10-PCS; 2021-01-22)
PROC: 5A09357 Assistance with Respiratory Ventilation, Less than 24 Consecutive Hours, Continuous Positive Airway Pressure (ICD-10-PCS; 2021-01-23)
PROC: 5A0935A Assistance with Respiratory Ventilation, Less than 24 Consecutive Hours, High Flow/Velocity Cannula (ICD-10-PCS; 2021-01-24)
PROC: 5A09357 Assistance with Respiratory Ventilation, Less than 24 Consecutive Hours, Continuous Positive Airway Pressure (ICD-10-PCS; 2021-01-24)
PROC: 5A09357 Assistance with Respiratory Ventilation, Less than 24 Consecutive Hours, Continuous Positive Airway Pressure (ICD-10-PCS; 2021-01-25)
PROC: 5A09357 Assistance with Respiratory Ventilation, Less than 24 Consecutive Hours, Continuous Positive Airway Pressure (ICD-10-PCS; 2021-01-26)
PROC: 5A09357 Assistance with Respiratory Ventilation, Less than 24 Consecutive Hours, Continuous Positive Airway Pressure (ICD-10-PCS; 2021-01-27)
PROC: 5A09357 Assistance with Respiratory Ventilation, Less than 24 Consecutive Hours, Continuous Positive Airway Pressure (ICD-10-PCS; 2021-01-28)
PROC: 5A0935A Assistance with Respiratory Ventilation, Less than 24 Consecutive Hours, High Flow/Velocity Cannula (ICD-10-PCS; 2021-01-28)
DX: J15.6 Pneumonia due to other Gram-negative bacteria (principal); G93.41 Metabolic encephalopathy; N17.0 Acute kidney failure with tubular necrosis; I50.33 Acute on chronic diastolic (congestive) heart failure; J96.21 Acute and chronic respiratory failure with hypoxia; J96.22 Acute and chronic respiratory failure with hypercapnia; I13.0 Hypertensive heart and chronic kidney disease with heart failure and stage 1 through stage 4 chronic kidney disease, or unspecified chronic kidney disease; J44.1 Chronic obstructive pulmonary disease with (acute) exacerbation; J44.0 Chronic obstructive pulmonary disease with (acute) lower respiratory infection; I48.20 Chronic atrial fibrillation, unspecified; N18.4 Chronic kidney disease, stage 4 (severe); N39.0 Urinary tract infection, site not specified; J81.1 Chronic pulmonary edema; E87.2 Acidosis; D68.59 Other primary thrombophilia; D61.818 Other pancytopenia; E78.5 Hyperlipidemia, unspecified; R77.8 Other specified abnormalities of plasma proteins; I27.20 Pulmonary hypertension, unspecified; I08.0 Rheumatic disorders of both mitral and aortic valves; F79 Unspecified intellectual disabilities; E66.9 Obesity, unspecified; G47.00 Insomnia, unspecified; E83.41 Hypermagnesemia; E86.9 Volume depletion, unspecified; R73.9 Hyperglycemia, unspecified; D72.819 Decreased white blood cell count, unspecified; Z20.822 Contact with and (suspected) exposure to COVID-19; Z79.82 Long term (current) use of aspirin; Z87.891 Personal history of nicotine dependence; Z79.899 Other long term (current) drug therapy; Z68.35 Body mass index [BMI] 35.0-35.9, adult

== ENCOUNTER 2021-02-05 18:26 | Inpatient (IN) | payer MEDICARE ==
[~2021-02-05] VITALS: Ht 167.6 cm; Wt 106.1 kg
[~2021-02-05 18:26] MED LIST: ADVAIR HFA 115-12 G1 INH; ASA81BEC PO; ELIQUIS5 MG PO; FERROUS FUMARAT89 MG PO; FUROSEMIDE 40 M40 MG PO; GUAIFENESIN DM1 EACH PO; IPRAT-ALBUT 0.5-3 ML INH; PREDNISONE 10 M10 MG PO; PROMETH-CODEIN 65 ML PO; PROTONIX40 M2 PO; TESSALON PERLE100 MG PO; TOPROL XL50 MG PO; TYLENOL325 MG PO; VITAMIN D310 MC2 PO; ZOCOR 20 MG TAB20 M1 PO
[2021-02-05 18:28] VITALS: BP 134/88
[2021-02-05 19:06] LABS: NUCLEATED RBCS 5 /100WBC
[2021-02-05 19:08] LABS: CALCIUM 8.5 mg/dL (8.5-10.1); CREATININE 3.6 mg/dL (0.6-1.3); POTASSIUM 5.5 mmol/L (3.5-5.1)
[2021-02-05 19:09] LABS: HEMOGLOBIN 12.2 gm/dL (12.0-15.0); MCHC 28.9 g/dL (28.0-37.0); MCV 100.2 fL (80.0-100.0); MPV 7.5 fl. (7.2-11.1); PLATELET COUNT* 108 thou/uL (150-400); RDW-CV 23.8 % (10.5-14.5); WBC 6.6 thou/uL (4.0-11.0)
[2021-02-05 19:19] LABS: ALBUMIN 3.2 g/dL (3.4-5.0); TOTAL BILIRUBIN 1.1 mg/dL (<0.1-1.0); TOTAL PROTEIN 6.3 g/dL (6.4-8.2)
[2021-02-05 19:27] LABS: ABSOLUTE LYMPHOCYTES 0.4 thou/uL (0.8-5.3); ABSOLUTE MONOCYTES 0.4 thou/uL (0.0-1.2); ABSOLUTE NEUTROPHILS 5.8 thou/uL (1.6-8.1); ANISOCYTOSIS 2+; ATYPICAL LYMPHS 2 %; PLATELET ESTIMATE DECREASED; POIKILOCYTOSIS 2+; POLYCHROMASIA 1+
[2021-02-05 19:28] LABS: MICROCYTES 1+; TEARDROPS 1+
[2021-02-05 22:21] LABS: APTT 33.5 Seconds (25.0-31.3); INR 1.8; PROTIME 18.4 Seconds (9.20-11.50)
[2021-02-05 23:32] VITALS: BP 121/74
[2021-02-06] VITALS (41 sets, daily range): BP systolic 85–130; BP diastolic 51–104
[2021-02-06 11:17] LABS: HEMOGLOBIN 10.7 gm/dL (12.0-15.0); MCH 28.9 pg (26.0-34.0); MCHC 28.2 g/dL (28.0-37.0); MCV 102.4 fL (80.0-100.0); MPV 7.9 fl. (7.2-11.1); NUCLEATED RBCS 2 /100WBC; PLATELET COUNT* 108 thou/uL (150-400); RBC 3.71 mil/uL (4.20-5.00); RDW-CV 23.4 % (10.5-14.5); WBC 11.6 thou/uL (4.0-11.0)
[2021-02-06 11:29] LABS: APTT 31.7 Seconds (25.0-31.3); INR 1.6; PROTIME 16.1 Seconds (9.20-11.50)
[2021-02-06 11:30] LABS: CALCIUM 8.1 mg/dL (8.5-10.1); CREATININE 3.8 mg/dL (0.6-1.3); MAGNESIUM 2.9 mg/dL (1.8-2.4); POTASSIUM 5.5 mmol/L (3.5-5.1); TOTAL BILIRUBIN 1.1 mg/dL (<0.1-1.0); TOTAL PROTEIN 5.9 g/dL (6.4-8.2)
[2021-02-06 11:47] LABS: ABSOLUTE LYMPHOCYTES 0.1 thou/uL (0.8-5.3); ABSOLUTE MONOCYTES 0.6 thou/uL (0.0-1.2); ABSOLUTE NEUTROPHILS 10.9 thou/uL (1.6-8.1)
[2021-02-06 11:50] LABS: ANISOCYTOSIS 2+; OVALOCYTES 2+; PLATELET ESTIMATE DECREASED
[2021-02-06 11:51] LABS: HYPOCHROMASIA Occasional; MACROCYTES 1+; MICROCYTES Occasional; POLYCHROMASIA Occasional
[2021-02-06 11:52] LABS: TEARDROPS 1+
[2021-02-06 11:54] LABS: SCHISTOCYTES Occasional
--- NOTE | 2021-02-06 12:39 | EKG ---
[place] [address] ELECTROCARDIOGRAM REPORT Name: ZOFIA YAO Room: [address] ADM IN M.R.#: [id number] Admission: 02/05/21 Attend Phys: Marshal Noble Discharge: Date of : 57 Date of Service: 02/05/211831 Report #: [id number] THIS REPORT FOR: //name// [facility] ED Test Date: 2021-02-05 Test Time: 18:32:15 Pat Name: ZOFIA YAO Department: Room: [facility] [place] Gender: F Surveillance Investigator: ISABELLE : 1955 Requested By: Doni Levine Order Number: [id number] MD: Tarun Garcia Measurements Intervals [place] Rate: 133 P: [place]: QRS: 0 QRSD: 75 T: 102 QT: 323 QTc: 481 Interpretive Statements Atrial fibrillation Low voltage, precordial leads RSR' in V1 or V2, right VCD Consider anterior infarct Nonspecific T abnormalities, lateral leads Compared to ECG 01/20/2021 00:31:06 Low QRS voltage now present RSR' in V1 or V2 now present T-wave abnormality now present Left anterior fascicular block no longer present Electronically Signed On 02-06-2021 12:39:25 DERMATOLOGICAL SURGEON by Tarun Garcia [email or web address] <ELECTRONICALLY SIGNED> By: Tarun Garcia MD, [facility] 02/06/21 1239 31 183 Tarun Garcia MD, [facility] /EPI
[2021-02-06 13:27] LABS: BE 2.3 mmol/L (-2 to +3); PO2 65.4 mmHg (75.0-100.0)
[2021-02-06 13:38] LABS: PCO2 71.7 mmHg (35.0-45.0); pH 7.255 (7.340-7.450)
[2021-02-06 14:59] LABS: CALCIUM 8.2 mg/dL (8.5-10.1); CREATININE 3.9 mg/dL (0.6-1.3); POTASSIUM 5.3 mmol/L (3.5-5.1)
[2021-02-06 17:10] LABS: SMEAR FOR EOSINOPHILS No Eosinophils Seen
[2021-02-06 18:33] LABS: BE 1.4 mmol/L (-2 to +3); PO2 81.8 mmHg (75.0-100.0)
[2021-02-06 18:38] LABS: PCO2 67.3 mmHg (35.0-45.0); pH 7.263 (7.340-7.450)
[2021-02-06 22:25] LABS: BE 3.9 mmol/L (-2 to +3); PO2 82.6 mmHg (75.0-100.0); pH 7.364 (7.340-7.450)
[2021-02-06 22:28] LABS: PCO2 54.4 mmHg (35.0-45.0)
[2021-02-07] VITALS (48 sets, daily range): BP systolic 85–116; BP diastolic 53–78
[2021-02-07 04:52] LABS: ABSOLUTE LYMPHOCYTES 0.1 thou/uL (0.8-5.3); ABSOLUTE MONOCYTES 0.1 thou/uL (0.0-1.2); ABSOLUTE NEUTROPHILS 5.7 thou/uL (1.6-8.1); BASOPHILS 0.4 %; EOSINOPHILS 0.1 %; HEMATOCRIT 33.8 % (37.0-47.0); HEMOGLOBIN 9.8 gm/dL (12.0-15.0); LYMPHOCYTES 1.6 %; MCH 28.8 pg (26.0-34.0); MCHC 28.9 g/dL (28.0-37.0); MCV 99.7 fL (80.0-100.0); MONOCYTES 1.6 %; MPV 7.8 fl. (7.2-11.1); NUCLEATED RBCS 1 /100WBC; PLATELET COUNT* 73 thou/uL (150-400); POLYS 96.3 %; RBC 3.39 mil/uL (4.20-5.00); RDW-CV 23.4 % (10.5-14.5); WBC 5.9 thou/uL (4.0-11.0)
[2021-02-07 05:15] LABS: ALBUMIN 2.5 g/dL (3.4-5.0); CALCIUM 7.8 mg/dL (8.5-10.1); MAGNESIUM 2.8 mg/dL (1.8-2.4); PHOSPHORUS* 5.9 mg/dL (2.5-4.9); POTASSIUM 4.8 mmol/L (3.5-5.1); TOTAL BILIRUBIN 0.9 mg/dL (<0.1-1.0); TOTAL PROTEIN 5.1 g/dL (6.4-8.2)
[2021-02-07 08:24] LABS: BE 6.3 mmol/L (-2 to +3); PO2 76.7 mmHg (75.0-100.0)
[2021-02-07 08:26] LABS: PCO2 50.1 mmHg (35.0-45.0)
[2021-02-08] VITALS (48 sets, daily range): BP systolic 76–108; BP diastolic 33–75
[2021-02-08 04:08] LABS: ABSOLUTE BASOPHILS 0.1 thou/uL (0.0-0.2); ABSOLUTE LYMPHOCYTES 0.1 thou/uL (0.8-5.3); ABSOLUTE MONOCYTES 0.1 thou/uL (0.0-1.2); ABSOLUTE NEUTROPHILS 5.4 thou/uL (1.6-8.1); BASOPHILS 0.9 %; HEMATOCRIT 32.8 % (37.0-47.0); HEMOGLOBIN 9.4 gm/dL (12.0-15.0); LYMPHOCYTES 1.4 %; MCH 28.7 pg (26.0-34.0); MCHC 28.6 g/dL (28.0-37.0); MCV 100.3 fL (80.0-100.0); MONOCYTES 2.6 %; MPV 8.6 fl. (7.2-11.1); NUCLEATED RBCS 1 /100WBC; PLATELET COUNT* 63 thou/uL (150-400); POLYS 95.1 %; PREALBUMIN 15.2 mg/dL (18.0-35.7); RBC 3.27 mil/uL (4.20-5.00); RDW-CV 23.4 % (10.5-14.5); WBC 5.6 thou/uL (4.0-11.0)
[2021-02-08 04:14] LABS: ALBUMIN 2.5 g/dL (3.4-5.0); CALCIUM 8.4 mg/dL (8.5-10.1); CREATININE 4.1 mg/dL (0.6-1.3); POTASSIUM 4.2 mmol/L (3.5-5.1); TOTAL BILIRUBIN 0.8 mg/dL (<0.1-1.0); TOTAL PROTEIN 5.2 g/dL (6.4-8.2)
[2021-02-09] VITALS (31 sets, daily range): BP systolic 83–115; BP diastolic 58–80
--- NOTE | 2021-02-09 01:02 | CON ---
[address] [address] CONSULTATION Name: ZOFIA YAO Room: [address] ADM IN M.R.#: [id number] Admission: 02/05/21 Attend Phys: Awilda Keene Discharge: Date of : 57 Report #: [id number] THIS REPORT FOR: cc: Jona Munoz MD, James MD ~ Carlos Magaña MD DATE OF SERVICE: 02/06/2021 REQUESTING PHYSICIAN: Dr. Almas Chapin. HISTORY OF PRESENT ILLNESS: This is a 65-year-old female. Past medical history is as mentioned below. I had recently seen this patient in this hospital during another hospitalization towards the second half of December. In summary, the patient during the previous hospitalization had acute on chronic hypoxemic and hypercarbic respiratory failure. She does have COPD. She is on a BiPAP residential at a long-term care facility that she resides at. During the patient's previous hospitalization, she was also noted to be in renal failure with a creatinine up to 2.9. We did not have a previous creatinine available to compare. The patient was seen in conjunction with the Nephrology service. We did treat her with broad-spectrum antibiotics in addition to corticosteroids. The patient did have AFib with RVR as well, eventually did stabilize and was transferred back to her long-term care facility. The patient is now admitted again today. Presentation is with increasing shortness of breath and hypoxemia. The patient was on a nonrebreather mask but saturating in the high 90s. When I initially saw her earlier today, she did appear to be tachypneic and did have increased work of breathing with respiratory rate around 30 at the time of my evaluation. The patient earlier also had AFib with RVR. I obtained stat labs as well as a chest x-ray. The chest x-ray now shows a near total collapse of the left lung. This is new since yesterday. There are increased reticular markings on the chest x-rays done yesterday, which likely are secondary to fluid overload; however, atypical infiltrate such as secondary to COVID-19 can also lead to this picture, although that does appear to be less likely. The patient was fully awake; however, did not answer orientation questions and was unable to provide a further history or review of systems. PAST MEDICAL HISTORY: COPD, is on a BiPAP intermodal customer service, is on oxygen residential. Chronic renal failure, creatinine during the last hospitalization was around 2.5-2.9, I do not have a previous baseline available. Hyperlipidemia; AFib with RVR during the previous hospitalization as well as now, had been on Eliquis since last admission; aortic stenosis; insomnia; and hypertension. The patient has only recently had an echocardiogram performed, which shows a left ventricular ejection fraction of 50-55%. There is [place] [address] CONSULTATION Name: ZOFIA YAO Room: [address] IN M.R.#: [id number] Admission: 02/05/21 Attend Phys: Awilda Keene Discharge: Date of : 57 Report #: [id number] stenosis as well as moderate aortic regurgitation. The pulmonary artery systolic is very high at 90 during the last echocardiogram. The patient has severe pulmonary hypertension. The patient also has a history of intellectual disability. SOCIAL HISTORY: The patient has a history of smoking, has now discontinued, unable to quantify exactly at this time. No known history of heavy alcohol use or illegal drug use. She is a resident of a long-term care facility. CURRENT MEDICATIONS: List in [facility] reviewed. HOME MEDICATIONS: List also in [facility] reviewed. See also discussion above. FAMILY HISTORY: There is no pertinent family history. ALLERGIES: No known drug allergies. PHYSICAL EXAMINATION: GENERAL: She is fully awake; however, she did not answer questions for me. VITAL SIGNS: Heart rate has been from 100-120, blood pressure last recorded at 106/67. She was on a nonrebreather mask, saturating 96-99%. Respiratory rate was 30, she did have accessory muscle use. She appeared short of breath at rest. She is afebrile with a temperature of 36.6. HEENT: Head is normocephalic and atraumatic. Pupils are equal and reactive. Mucous membranes appear to be moist. There is no throat erythema. NECK: Does not show raised JVP, asymmetry, mass, or lymph nodes. CHEST: Decreased expansion on the left side on inspection as well as palpation. On auscultation, breath sounds are decreased at the left lung base. HEART: Irregular, tachycardia noted. There is a 2/6 systolic murmur. ABDOMEN: Mildly distended, nontender. EXTREMITIES: Lower extremities do show 1+ edema bilaterally. There is no calf tenderness. SKIN: Dry and intact. NEUROLOGICAL: Moves all extremities bilaterally equally and spontaneously with no focal deficit identified. IMAGING: The patient's chest x-rays from yesterday as well as today are in [facility] and these are reviewed. Also, see discussion above. I reviewed the films as well as report. The patient's CT head also in [facility] reviewed. LABORATORY DATA: The patient's lab work, which does show worsening renal failure, creatinine now rising to 3.8, in [employer] reviewed. I just placed the patient on a BiPAP and followup arterial blood gases are [facility] [address] [place] [address] CONSULTATION Name: ZOFIA YAO Room: [address] ADM IN M.R.#: [id number] Admission: 02/05/21 Attend Phys: Awilda Keene Discharge: Date of : 57 Report #: [id number] pending at this time. COVID-19 screen is negative. We ordered a COVID-19 PCR, which is pending at this time. ASSESSMENT AND PLAN: 1. Boyvo-ic-qahvlhu hypoxemic and hypercarbic respiratory failure. I went ahead and placed the patient on a BiPAP, followup arterial blood gases are pending. The patient is a potential candidate for endotracheal intubation if she does not improve soon; however, it is noted that the patient is DNR and DNI and therefore this is not a consideration. 2. Acute on chronic renal failure with fluid overload. The Nephrology service is on the case. 3. Left lung collapse/mucus plugging/pleural effusion. I do not feel that the patient is a candidate for bronchoscopy unless she is endotracheally intubated. I will go ahead and give her Mucomyst. I understand that doing a thoracentesis will be high risk considering that she is on anticoagulation; however, benefit appears to be outweighing the risk and therefore I requested IR for an ultrasound of the left chest and if enough fluid is present, then I requested consideration for a thoracentesis. 4. Chronic obstructive pulmonary disease exacerbation. She is on nebulized bronchodilators. I will go ahead and add Solu-Medrol. 5. Pulmonary infiltrates. She is on Zosyn. I agree with the same. I will review her antibiotic coverage further and advise. The patient received doxycycline and Zosyn during the previous admission and received 2 doses of Levaquin as well. I considered as to whether I should add MRSA coverage; however, there is no definite evidence of MRSA. Vancomycin will be very high risk for nephrotoxicity and her platelets are on the lower side. Therefore, she is at high risk for use of linezolid as well. 6. Severe pulmonary hypertension with a pulmonary artery systolic of 90. Last perfusion scan was unremarkable, still it is possible that the patient had pulmonary emboli last month and she has been on anticoagulation. 7. Severe aortic stenosis. 8. Atrial fibrillation with rapid ventricular response. 9. Intravenous access. The patient has a central line. 10. The patient is critically ill at this time. Total time spent providing critical care to this patient today exceeds 46 minutes. <ELECTRONICALLY SIGNED> By: Carlos Magaña MD 02/09/21 0102 1240 1804Agiuseppe Magaña MD /nt
[2021-02-09 05:19] LABS: ABSOLUTE BASOPHILS 0.1 thou/uL (0.0-0.2); ABSOLUTE LYMPHOCYTES 0.1 thou/uL (0.8-5.3); ABSOLUTE MONOCYTES 0.2 thou/uL (0.0-1.2); BASOPHILS 2.7 %; HEMATOCRIT 33.2 % (37.0-47.0); HEMOGLOBIN 9.8 gm/dL (12.0-15.0); LYMPHOCYTES 1.6 %; MCH 29.5 pg (26.0-34.0); MCHC 29.5 g/dL (28.0-37.0); MCV 99.9 fL (80.0-100.0); MONOCYTES 3.5 %; MPV 8.5 fl. (7.2-11.1); NUCLEATED RBCS 1 /100WBC; PLATELET COUNT* 58 thou/uL (150-400); POLYS 92.2 %; RBC 3.32 mil/uL (4.20-5.00); RDW-CV 23.5 % (10.5-14.5); WBC 5.4 thou/uL (4.0-11.0)
[2021-02-09 05:32] LABS: ALBUMIN 2.7 g/dL (3.4-5.0); CALCIUM 8.2 mg/dL (8.5-10.1); CREATININE 4.2 mg/dL (0.6-1.3); MAGNESIUM 2.6 mg/dL (1.8-2.4); PHOSPHORUS* 5.7 mg/dL (2.5-4.9); POTASSIUM 3.9 mmol/L (3.5-5.1); TOTAL PROTEIN 5.4 g/dL (6.4-8.2)
[2021-02-10] VITALS (18 sets, daily range): BP systolic 70–115; BP diastolic 48–78
[2021-02-10 08:07] LABS: HEMATOCRIT 34.7 % (37.0-47.0); HEMOGLOBIN 10.1 gm/dL (12.0-15.0); MCH 28.8 pg (26.0-34.0); MCV 99.5 fL (80.0-100.0); MPV 8.8 fl. (7.2-11.1); NUCLEATED RBCS 2 /100WBC; RBC 3.49 mil/uL (4.20-5.00); RDW-CV 23.6 % (10.5-14.5); WBC 5.7 thou/uL (4.0-11.0)
[2021-02-10 08:15] LABS: ALBUMIN 2.8 g/dL (3.4-5.0); CALCIUM 8.5 mg/dL (8.5-10.1); CREATININE 4.5 mg/dL (0.6-1.3); POTASSIUM 4.2 mmol/L (3.5-5.1); TOTAL BILIRUBIN 0.9 mg/dL (<0.1-1.0); TOTAL PROTEIN 5.7 g/dL (6.4-8.2)
[2021-02-10 08:45] LABS: PLATELET COUNT* 42 thou/uL (150-400)
[2021-02-10 09:10] LABS: ABSOLUTE LYMPHOCYTES 0.2 thou/uL (0.8-5.3); ABSOLUTE MONOCYTES 0.2 thou/uL (0.0-1.2); ABSOLUTE NEUTROPHILS 5.4 thou/uL (1.6-8.1); OVALOCYTES 1+; PLATELET ESTIMATE DECREASED; SCHISTOCYTES Occasional
[2021-02-10 09:11] LABS: BURR CELLS Occasional; HYPOCHROMASIA 1+; POLYCHROMASIA 1+
[2021-02-10 09:12] LABS: ANISOCYTOSIS 1+; POIKILOCYTOSIS 2+
[2021-02-11] VITALS (17 sets, daily range): BP systolic 78–109; BP diastolic 46–72
[2021-02-11 04:45] LABS: ABSOLUTE BASOPHILS 0.1 thou/uL (0.0-0.2); ABSOLUTE LYMPHOCYTES 0.1 thou/uL (0.8-5.3); ABSOLUTE MONOCYTES 0.1 thou/uL (0.0-1.2); ABSOLUTE NEUTROPHILS 5.6 thou/uL (1.6-8.1); BASOPHILS 1.2 %; EOSINOPHILS 0.3 %; HEMATOCRIT 34.9 % (37.0-47.0); HEMOGLOBIN 10.3 gm/dL (12.0-15.0); LYMPHOCYTES 2.3 %; MCH 28.8 pg (26.0-34.0); MCHC 29.5 g/dL (28.0-37.0); MCV 97.7 fL (80.0-100.0); MONOCYTES 1.5 %; MPV 8.2 fl. (7.2-11.1); NUCLEATED RBCS 7 /100WBC; POLYS 94.7 %; RBC 3.57 mil/uL (4.20-5.00); RDW-CV 23.6 % (10.5-14.5); WBC 5.9 thou/uL (4.0-11.0)
[2021-02-11 04:57] LABS: PLATELET COUNT* 42 thou/uL (150-400)
[2021-02-11 05:14] LABS: ALBUMIN 2.7 g/dL (3.4-5.0); CALCIUM 8.9 mg/dL (8.5-10.1); CREATININE 4.9 mg/dL (0.6-1.3); POTASSIUM 4.5 mmol/L (3.5-5.1); TOTAL PROTEIN 5.7 g/dL (6.4-8.2)
[2021-02-12 07:50] VITALS: BP 98/56
[2021-02-12] MEDS ORDERED: MSL20MG/ML SUBLING (08:31)
[2021-02-12] MEDS ORDERED: LORAZEPAM 1 MG T1 MG PO (08:31)
--- NOTE | 2021-02-13 13:08 | PATH ---
[address] [address] PATHOLOGY RPT PROCEDURE Name: MAXIMILIANZOFIA Room: [address] IN M.R.#: [id number] Admission: 02/05/21 Date of : 57 Discharge: 02/12/21 Report #: [id number] Path Case #: [id number] [facility] Accession Number: [id number] . 01 Material submitted: . groin - LEFT GROIN MASS. Modifiers: left . 02 Diagnosis: Soft tissue "left groin mass", needle biopsy: - SQUAMOUS CELL CARCINOMA, KERATINIZING, MODERATELY DIFFERENTIATED, WITH NECROSIS. - Please see comment. (MLK:supreme court judge; 02/12/2021) . The findings are conveyed to Dr. Curtis Banks on 02/11/2021 at approximately 11:30. MBR 02/13/2021 1149 Local . 02 Comment: Needle biopsy of the left groin mass demonstrates a moderately differentiated keratinizing squamous cell carcinoma, arising in a background of fibrous connective tissue. The P16 shows marked cytoplasmic reactivity with the tumor cells. . The case is seen in co-review with Dr. Cornell Parrish who concurs with the above diagnosis. . (OFELIA:benjamín; 02/12/2021) . 02 Electronically signed: . Charles Coombs MD, Pathologist NPI- [id number] . 01 Gross description: . The specimen is received in formalin, labeled "Zofia Carrillo, left groin mass". Received are two needle cores of pale kwan tissue measuring 0.9 and 1.2 cm in length, with each measuring 0.1 cm in diameter. The specimen is submitted entirely in cassettes A1 and A2. A portion of the specimen was received in RPMI solution and is forwarded to an outside laboratory for flow cytometry studies. ([facility]; 02/10/2021) QAC/QAC 02/10/2021 1424 Local . 02 Microscopic: . Immunohistochemical stain results (properly controlled): P16 (A1) - strong cytoplasmic reactivity within viable tumor cells. (HEAVENLYK:benjamín; 02/12/2021) . 02 [place] [address] PATHOLOGY RPT PROCEDURE Name: ZOFIA CARRILLO Room: [address] DIS IN M.R.#: [id number] Admission: 02/05/21 Date of : 57 Discharge: 02/12/21 Report #: [id number] Path Case #: [id number] Pathologist provided ICD-10: C76.3 . 02 CPT . 987555, B78733 Specimen Comment: A courtesy copy of this report has been sent to [phone] Specimen Comment: Report sent to Performed at: [address], [place], [place] [id number] MD Prince Alexandre MD Phone: [phone] Performed at: 02 [facility] [address], [place], [place] [id number] MD Roel De Souza MD Phone: [phone]
--- NOTE | 2021-03-03 20:29 | CON ---
[address] [address] CONSULTATION Name: ZOFIA YAO Room: [address] IN M.R.#: [id number] Admission: 02/05/21 Attend Phys: Awilda Keene Discharge: 02/12/21 Date of : 57 Report #: [id number] THIS REPORT FOR: cc: Jona Munoz MD, James MD McKittrick,Vitaly Tenorio MD ~ REQUESTING PHYSICIAN: Jona Munoz MD REASON FOR CONSULT: Thrombocytopenia. HISTORY OF PRESENT ILLNESS: The patient is a 65-year-old female in the ICU. She had originally been seen by one of my partners on a previous admission about 2 weeks ago for mild pancytopenia. At that time, her white count was 3.6, hemoglobin 10.1 and platelets of 114. During the intervening time when she left the hospital, her platelets were 155,000. When she was admitted here on the , 108,000; on the 73,000; and today on the , 63,000. Her hemoglobin is stable about 9.4. Her chemistries are mostly unchanged with elevated creatinine of 4.1 today. AST normal, total bili normal, ALT slightly elevated at 92. Albumin low at 2.5, LDH checked last time slightly elevated at 272. TSH and iron were checked last time and B12 were all normal. Folate was thought to be slightly low. We will make sure that she is on replacement. Also, note that last admit, her immature platelet fraction was slightly elevated at 12.4, which is above 7.1 suggesting that she is producing platelets faster than usual and perhaps there is a destructive process going on. Her coags were mostly normal, though her aPTT was slightly elevated this admit at 33.5. In the past, she has been 37.1. Today, her aPTT of 31.7 near baseline. In the past, her heparin antibody test was negative. MCV slightly elevated at 100.3. Imaging is notable for a CAT scan of the chest x 2, now showing bilateral axillary lymphadenopathy and right supraclavicular lymph nodes and a recent ultrasound looking for blood clots saw a large left groin mass, possibly lymph node measuring approximately 5 cm. The patient is not aware of these issues, but she is also a very poor historian. PAST MEDICAL HISTORY: Notable for history of residing in an extended care facility due to chronic cognitive impairment, functional quadriplegia. Also, history of atrial fibrillation, severe aortic stenosis, pulmonary hypertension, acute on chronic diastolic heart failure, COPD, obesity. She was admitted this time for shortness of air, which was thought to be slightly improved. SOCIAL HISTORY: Resides at a care facility. Other than that, not known. FAMILY HISTORY: Does not appear to include blood disorders. PHYSICAL EXAMINATION: GENERAL: The patient appears her stated age, is a middle[place] [address] CONSULTATION Name: ZOFIA YAO Room: [address] IN M.R.#: [id number] Admission: 02/05/21 Attend Phys: Awilda Keene Discharge: 02/12/21 Date of : 57 Report #: [id number] in the ICU, receiving aerosol treatments. VITAL SIGNS: Blood pressure is currently 76/33, O2 sat 100%, pulse 110, temperature is afebrile at 97.6. HEENT: Face appears mostly symmetrical. NEUROLOGIC: She is able to nod her head and answer simple questions. Memory does not appear to be good. I do not feel a definite enlarged lymph nodes in her neck or axilla that is hard to tell with her position in the bed. ABDOMEN: Obese. No definite masses. EXTREMITIES: Without clubbing, cyanosis. There is edema, the nurse tells me it has improved. ASSESSMENT AND PLAN: 1. Thrombocytopenia in the setting of bilateral axillary lymphadenopathy, supraclavicular adenopathy, as well as the left groin adenopathy. Called family by phone to discuss we could either consider biopsy or not. If we do a biopsy and find malignancy, I do note that she should be able to tolerate therapy, but it might give us a stop sign with regards to whether to help us decide whether to stop her other aggressive measures. They would like to pursue this. We will order CAT scan of abdomen and pelvis without contrast given her kidney function, but also ask for an image-guided biopsy of the enlarged groin mass. Family is aware this may take several days to get this back. This likely would not occur until tomorrow. As far as the thrombocytopenia not bleeding, no need for additional transfusions at this time. 2. Acute on chronic heart failure. Management per others. 3. Atrial fibrillation. Management per others. 4. Severe aortic stenosis. Management per others. 5. Pulmonary hypertension. Management per others. 6. Acute on chronic renal failure. Management per others. 7. Chronic cognitive impairment, though likely ____ our plans for this patient. 8. Obesity. Management per others. CURRENT MEDICATIONS: Currently include norepinephrine drip as needed, Zosyn antibiotic 3.375 q. 12 hours, methylprednisolone 40 mg q. 8 hours, insulin on a sliding scale, pantoprazole 40 mg IV, furosemide IV, metoprolol 2.5 mg q. 6 hours, scheduled I believe. Diltiazem drip, acetylcysteine respiratory therapy, ipratropium and albuterol respiratory therapy budesonide, inhalation therapy, hydralazine p.r.n., Zofran p.r.n., MiraLax p.r.n., Tylenol p.r.n., levofloxacin q. 48 hours. <ELECTRONICALLY SIGNED> By: Vitaly Banks MD 03/03/219 1122 1827Vitaly Banks MD /nt
== END 2021-02-12 14:00 | disposition hospice, home (50) | DRG 177 ==
LOC: M.ERS 18:26 → M.TBA-ER 21:27 → M.ICU 21:27 → M.ORTHSURG 02-11 17:00
PROVIDERS: Emergency Medicine Emergency Medical Services; Internal Medicine; Internal Medicine Critical Care Medicine; Internal Medicine Nephrology; Pediatrics; Personal Emergency Response Attendant; ADMIT Internal Medicine; ATTEND Internal Medicine
PROC: B548ZZA Ultrasonography of Superior Vena Cava, Guidance (ICD-10-PCS; 2021-02-05)
PROC: 02HV33Z Insertion of Infusion Device into Superior Vena Cava, Percutaneous Approach (ICD-10-PCS; 2021-02-05)
PROC: 5A09357 Assistance with Respiratory Ventilation, Less than 24 Consecutive Hours, Continuous Positive Airway Pressure (ICD-10-PCS; 2021-02-06)
PROC: 5A0935A Assistance with Respiratory Ventilation, Less than 24 Consecutive Hours, High Flow/Velocity Cannula (ICD-10-PCS; 2021-02-07)
PROC: 5A0935A Assistance with Respiratory Ventilation, Less than 24 Consecutive Hours, High Flow/Velocity Cannula (ICD-10-PCS; 2021-02-08)
PROC: 5A09357 Assistance with Respiratory Ventilation, Less than 24 Consecutive Hours, Continuous Positive Airway Pressure (ICD-10-PCS; 2021-02-08)
PROC: 0W9J3ZX Drainage of Pelvic Cavity, Percutaneous Approach, Diagnostic (ICD-10-PCS; principal; 2021-02-09)
PROC: 5A0935A Assistance with Respiratory Ventilation, Less than 24 Consecutive Hours, High Flow/Velocity Cannula (ICD-10-PCS; 2021-02-09)
PROC: 5A09357 Assistance with Respiratory Ventilation, Less than 24 Consecutive Hours, Continuous Positive Airway Pressure (ICD-10-PCS; 2021-02-09)
PROC: 5A09357 Assistance with Respiratory Ventilation, Less than 24 Consecutive Hours, Continuous Positive Airway Pressure (ICD-10-PCS; 2021-02-10)
PROC: 5A0935A Assistance with Respiratory Ventilation, Less than 24 Consecutive Hours, High Flow/Velocity Cannula (ICD-10-PCS; 2021-02-10)
PROC: 5A0935A Assistance with Respiratory Ventilation, Less than 24 Consecutive Hours, High Flow/Velocity Cannula (ICD-10-PCS; 2021-02-11)
PROC: 5A09357 Assistance with Respiratory Ventilation, Less than 24 Consecutive Hours, Continuous Positive Airway Pressure (ICD-10-PCS; 2021-02-11)
DX: J69.0 Pneumonitis due to inhalation of food and vomit (principal); I21.4 Non-ST elevation (NSTEMI) myocardial infarction; J96.21 Acute and chronic respiratory failure with hypoxia; I50.33 Acute on chronic diastolic (congestive) heart failure; G92 Toxic encephalopathy; R53.2 Functional quadriplegia; E43 Unspecified severe protein-calorie malnutrition; J96.22 Acute and chronic respiratory failure with hypercapnia; I13.0 Hypertensive heart and chronic kidney disease with heart failure and stage 1 through stage 4 chronic kidney disease, or unspecified chronic kidney disease; N17.9 Acute kidney failure, unspecified; N18.4 Chronic kidney disease, stage 4 (severe); J98.19 Other pulmonary collapse; E87.0 Hyperosmolality and hypernatremia; I48.20 Chronic atrial fibrillation, unspecified; J91.8 Pleural effusion in other conditions classified elsewhere; J44.1 Chronic obstructive pulmonary disease with (acute) exacerbation; J44.0 Chronic obstructive pulmonary disease with (acute) lower respiratory infection; D61.818 Other pancytopenia; I48.91 Unspecified atrial fibrillation; I08.2 Rheumatic disorders of both aortic and tricuspid valves; I27.20 Pulmonary hypertension, unspecified; D64.9 Anemia, unspecified; D69.6 Thrombocytopenia, unspecified; C80.1 Malignant (primary) neoplasm, unspecified; E66.9 Obesity, unspecified; I95.9 Hypotension, unspecified; Z51.5 Encounter for palliative care; G47.00 Insomnia, unspecified; R22.9 Localized swelling, mass and lump, unspecified; E78.5 Hyperlipidemia, unspecified; Z20.822 Contact with and (suspected) exposure to COVID-19; Z66 Do not resuscitate; Z79.82 Long term (current) use of aspirin; Z68.37 Body mass index [BMI] 37.0-37.9, adult; Z79.899 Other long term (current) drug therapy; Z79.01 Long term (current) use of anticoagulants; Z86.16 Personal history of COVID-19